=== PATIENT | female | born 1990 | race Caucasian/White ===

== ENCOUNTER 2016-10-23 11:54 | Emergency (ER) | payer OTHER ==
[~2016-10-23] VITALS: Ht 162.6 cm; Wt 68.5 kg
[2016-10-23 12:25] VITALS: Ht 162.6 cm; Wt 68.5 kg
--- NOTE | 2016-10-23 14:44 | EN ---
Date/Time of Note Date/Time of Note DATE: 10/23/16 TIME: 14:43 ER Progress Note Rapid medical evaluation note: 18-year-old female was seen, states that she had an inversion injury and is complaining of right lateral ankle pain. She will be seen and further evaluated in the emergency department 2. KHUSHBU PHAM PA-C Oct 23, 2016 14:44
[2016-10-23] MEDS ORDERED: HYDROCODONE/APAP (5/325) TAB PO ONE (15:00)
--- NOTE | 2016-10-23 15:07 | ERA ---
ER Documentation Chief Complaint Date/Time DATE: 10/23/16 TIME: 15:06 Chief Complaint RIGHT ANKLE PAIN,DIFFICULTY WALKING HPI 18-year-old female presenting with complaining of right ankle pain starting last night. Patient said that she was walking when she tripped. There is no loss of consciousness no injury or impact other areas of the body. Patient denies nausea, vomiting, headache, neck pain or back pain. Patient says that the ankle has swelled progressively has become more tender since last night. Patient's pain worsens with walking and is relieved with rest. ROS All systems reviewed and are negative except as per history of present illness. Medications Home Meds Active Scripts Ibuprofen* (Motrin*) 600 Mg Tab, 600 MG PO Q6H Y for PAIN AND OR ELEVATED TEMP, #30 TAB Prov:OMA DOWELL PA-C 10/23/16 Allergies Allergies: Coded Allergies: No Known Allergy (Unverified , 10/23/16) PMhx/Soc Medical and Surgical Hx: pt denies Medical Hx, pt denies Surgical Hx Hx Alcohol Use: No Hx Substance Use: No Smoking Status: Current every day smoker Physical Exam Vitals Vital Signs Date Time Temp Pulse Resp B/P Pulse Ox O2 Delivery O2 Flow Rate FiO2 10/23/16 12:25 98.1 79 18 121/73 98 Physical Exam Const: Well-appearing 18-year-old female who is presenting with her boyfriend who is the historian. Head: Atraumatic Eyes: Normal Conjunctiva ENT: Normal External Ears, Nose and Mouth. Neck: Full range of motion..~ No meningismus. Resp: Clear to auscultation bilaterally Cardio: Regular rate and rhythm, no murmurs Abd: Soft, non tender, non distended. Normal bowel sounds Skin: No petechiae or rashes Back: No midline or flank tenderness Ext: Tenderness to the lateral right ankle. Limited range of motion secondary to pain. Patient is neurovascularly intact bilaterally. Neur: Awake and alert Psych: Normal Mood and Affect Results 24 hrs Current Medications Medications (Trade) Dose Ordered Sig/Cheo Route PRN Reason Start Time Stop Time Status Last Admin Dose Admin Acetaminophen/ Hydrocodone Bitart ([place] (5/325)) 1 tab ONCE ONCE PO 10/23/16 15:00 10/23/16 15:01 DC 10/23/16 15:23 Procedures/MDM Patient is a well-appearing 26-year-old female who presents with her boyfriend who is the historian seems reliable. Ambulation is limited secondary to pain patient has tenderness on the lateral aspect of her right ankle after tripping last night. Patient has noticeable nonpitting edema 2+ on the lateral aspect of the right ankle. We will go ahead and treat with ibuprofen for discomfort and swelling and crutches for 2 days with an Peng brace. Patient has been educated on the use the crutches for the duration. I gave the patient discharge instructions including marked swelling and pain beyond physical appearance. At this time there is no reason for me to suspect compartment syndrome as the pain is appropriate for physical exam and there is no tenderness in areas of injury. Patient is neurovascularly intact bilaterally and vital signs are stable. Departure Diagnosis: Primary Impression: Ankle sprain Qualified Code: S93.401A - Sprain of right ankle, unspecified ligament, initial encounter Additional Impression: Right ankle strain Qualified Code: S96.911A - Right ankle strain, initial encounter Condition: Stable Additional Instructions: Follow up with your PCP within the next 1-3 days for a more thorough evaluation and a possible referral to a specialist. Return the the emergency department immediately if symptoms worsen or change. If you have any questions regarding medications, ask your pharmacist or us before you leave. If any adverse reactions occur while taking your medications, discontinue the treatment and return to the emergency department immediately. Take your medications as directed, and complete the entire course of treatment. OMA DOWELL PA-C Oct 23, 2016 15:07
--- NOTE | 2016-10-23 15:52 | RADRPT ---
PROCEDURE: XR Ankle. CLINICAL INDICATION: Trauma TECHNIQUE: Three views of the right ankle are available for review COMPARISON: None available FINDINGS: There is no acute osseous or articular abnormality. No evidence for fracture. Bone mineral density is preserved. The articular surfaces are smooth without evidence of marginal erosions. The ankle mo rtise is preserved. There is marked lateral soft tissue swelling and a small tibiotalar joint effus ion. IMPRESSION: 1. No acute osseous abnormality. 2. Soft tissue swelling and tibiotalar joint effusion. RPTAT: EE .Price Mary MD, MD Date Time Electronically viewed and signed by .Price Mary MD, on 10/23/2016 15:52 .d/
[2016-10-23] MEDS ORDERED: IBUP-1542 PO (16:11)
== END 2016-10-23 16:25 | disposition home or self-care (01) ==
LOC: FTE 11:54
DX: S93.401A Sprain of unspecified ligament of right ankle, initial encounter (principal); S96.911A Strain of unspecified muscle and tendon at ankle and foot level, right foot, initial encounter; F17.210 Nicotine dependence, cigarettes, uncomplicated; W18.40XA Slipping, tripping and stumbling without falling, unspecified, initial encounter; Y92.9 Unspecified place or not applicable
CPT/HCPCS: 73610; Z7502; Z7610